=== PATIENT | female | born 1990 | race Two or more races ===

== ENCOUNTER 2017-10-16 11:45 | Inpatient (IN) | payer MEDICAID ==
[2017-10-16] MEDS ORDERED: Misoprostol TAB* 100 MCG PO ONE (14:15)
--- NOTE | 2017-10-16 19:00 | HP ---
General Information - Reason for Visit spontaneous rupture of membranes - General Information Maternal Age: 27 Grav: 1 Para: 0 SAB: 0 IEA: 0 Estimated Due Date: 10/16/17 Determined By: LMP Maternal Blood Type and Rh: A Positive - Results this Serology/RPR Result: Non-Reactive Rubella Result: Immune HBsAg Result: Negative HIV Result: Negative GBS Culture Result: Negative Past Medical History Delivery History: See Records Pertinent Past Medical History: See Records - uterine fibroids Past Medical History Comment: ooprectomy and cystectomy Pertinent Past Surgical History: See Records - oophrectomy and cystectomy, appendectomy Pertinent Family History: See Records - Br. CA, CVD, HTN - Antepartal Records Antepartal Records: Reviewed, Complicated by: - uterine fibroids Review of Systems Constitutional: Comfortable CV Complaint: No Respiratory: Shortness of Breath: No Gastrointestinal: No Nausea/Vomiting, Normal Bowel Movement Genitourinary: Leaking Fluid, No Dysuria, No Bleeding Musculoskeletal: No Complaint, No Epigastric Pain Neurological: No Headache, No Visual Changes Movement: Normal Exam Allergies/Adverse Reactions: Allergies No Known Allergies Allergy (Verified 10/16/17 15:27) T:98.3, P:83, R:18, BP: 117/65, O2:98 - Measurements Height: 5 ft 6 in Weight: 162 lb Weight in lbs: 162.284300 Body Mass Index (BMI): 26.1 Pre- Weight: 139 lb Weight Gained This : 23 lbs and 0 ozs - Exam Breast: Breast Exam Deferred CVA: No CVA Tenderness Extremities: No Edema Heart: Normal Rhythm/Heart Sounds HEENT: No Significant Findings Lungs: Clear Bilaterally Rectal: Rectal Exam Deferred Reflexes: DTR 2+ Thyroid: No Thyromegaly - Abdominal Exam Abdomen Exam: Fundal Height Consistent with Dates - Ultrasound/Biophysical Profile Ultrasound Status: Not Done Targeted Exam Findings Estimated Weight: 8lbs Cervical Exam: 3cm Effacement: 70% Station: -1 Presenting Part: Vertex Membrane Status: Leaking Amniotic Fluid Evaluation: Clear Bleeding/Discharge: None EFM Findings - External Monitor Findings Baseline Heart Rate: 130 External Monitor Findings: Accelerations Present, Variability Moderate, Baseline Stable Contractions: Irregular, Mild, 45-90 Seconds Assessment/Plan - Assessment 27 y.o , EGA 40wks, SROM - Plan Plan: Induction, Cervical Ripening - Date/Time of Admission Date of Admission: 10/16/17 Time of Admission: 13:00
--- NOTE | 2017-10-17 05:53 | PN ---
Progress Note - Progress Note Date of Service: 10/17/17 SOAP: Subjective: [Pt reports contractions increasing in intensity approx 5-6 min apart. Con't LOF, clear. +bloody show, -bleeding. +FM. Pt tired and desires epidural and pitocin augmentation as needed.] Objective: [T:98.2 BP: 124/66, P:75, R:18 cervical exam by nurse Indu Ray /-1] Assessment: [27 y.o. , SROM] Plan: [1) Epidural 2) Position changes 3) Start pitocin 4) Reviewed R/B and pt agrees with plan]
[2017-10-17 05:54] LABS: ABS Basophils 0.1 10^3/ul (0-0.2); ABS Eosinophils 0 10^3/ul (0-0.6); ABS Monocytes 0.5 10^3/ul (0-0.8); ABS Neutrophils 7.7 10^3/ul (1.5-7.7); ABS Nucleated RBC 0 10^3/ul; Eosinophil % 0.2 % (0-6); Hematocrit 40 % (35-47); Hemoglobin 13.9 g/dl (12.0-16.0); Lymphocyte % 10.3 % (25-47); Mean Corpuscular HGB Conc 35 g/dl (31-36); Mean Corpuscular Hemoglobin 33 pg (27-31); Mean Corpuscular Volume 96 fL (80-97); Mean Platelet Volume 8.8 um3 (7.4-10.4); Nucleated Red Blood Cells % 0.1; Platelet Count 166 10^3/ul (150-450); Red Blood Count 4.18 10^6/ul (4.00-5.40); Red Cell Distribution Width 14 % (10.5-15); White Blood Count 9.3 10^3/ul (3.5-10.8)
[2017-10-17] MEDS ORDERED: OBEPIDURAL* 250 ML EPIDURAL ONE (06:00)
[2017-10-17] MEDS ORDERED: Sodium Citrate/Citric Acid* 15 ML UDC PO PRN (07:05)
[2017-10-17] MEDS ORDERED: Famotidine TAB* 20 MG PO PRN (07:05)
[2017-10-17] MEDS ORDERED: Phenylephrine IV* 40 MCG/ML 10 ML SYRINGE IV PUSH PRN ×2 (07:05)
[2017-10-17] MEDS ORDERED: fentaNYL* 50 MCG/ML 2 ML VIAL (100 MCG VIAL) ONE (07:41)
--- NOTE | 2017-10-17 07:41 | PN ---
Progress Note - Progress Note Date of Service: 10/17/17 SOAP: Subjective: [Pt reports back pain is gone but pt con't to complain of lower abdominal pain with contraction. Anesth to reevaluate pt. ] Objective: [T: 99.1, P: 88, BP: 120/70 FHT: Baseline 145bpm, +accels, -decels, mod variability ctx q3-6 min.] Assessment: [27 y.o. 40w1d SROM, protracted labor] Plan: [1) Anesth. consult 2) Start Pitocin low dose 3) Reevaluate PRN]
[2017-10-17] MEDS ORDERED: Oxytocin in LR* 20 UNITS/1,000 ML BAG IVPB SCH ×2 (08:00→16:00)
[2017-10-17] MEDS ORDERED: Oxytocin in LR* 20 UNITS/1,000 ML BAG IVPB ONE (08:11)
--- NOTE | 2017-10-17 12:23 | PN ---
Progress Note - Progress Note Date of Service: 10/17/17 SOAP: Subjective: [Pt resting comfortably with second epidural. ] Objective: [BP: 105/65, T:99.2 FHR: Baseline: 140 bpm, +accels, -decels, mod variability. ] Assessment: [27 y.o. 40w1d EGA, SROM, protracted. Pitocin augmentation] Plan: [1) Con't pitocin 2) Position changes 3) Reevaluate PRN]
[2017-10-17] MEDS ORDERED: Acetaminophen TAB* 325 MG PO PRN (15:31)
[2017-10-17] MEDS ORDERED: Glycerin ADULT SUPP PR PRN (15:31)
--- NOTE | 2017-10-17 15:35 | PROCNOTE ---
[facility] OB: Delivery Note - Delivery A Date of : 10/17/17 Time of : 14:52 Sex: Male Score 1 Minute: 9 Score 5 Minutes: 9 Gestational Age in Weeks and Days at Delivery: 40 Weeks and 1 Days Delivery Method: Spontaneous Vaginal Labor: Spontaneous Did Patient attempt ?: N/A, No Previous Amniotic Fluid: Clear Estimated Blood Loss: 350 Anesthesia/Analgesia: CEI for Labor Delivered By: Saida Mendenhall - Nursery Level of Nursery: Regular/Bedside - Perineum Perineal Injury: Bruising, Perineal Laceration, 2nd Degree Perineal Repair: By Delivering Practioner - Events Delivery Events of Note: Pitocin During Labor, Supplemental O2 to Mother, Maternal Temperature during Labor
[2017-10-17] MEDS ORDERED: Simethicone TAB* 80 MG TAB.CHEW PO SCH (17:30)
[2017-10-17] MEDS: Ibuprofen TAB* 600 MG PO PRN (19:37)
[2017-10-17] MEDS: OBEPIDURAL* 250 ML EPIDURAL SCH (20:23)
[2017-10-17] MEDS: Docusate CAP* 100 MG PO SCH (21:20)
[2017-10-18] MEDS: Ibuprofen TAB* 600 MG PO PRN ×2 (07:51→21:21)
[2017-10-18] MEDS: Dibucaine 1% 28.35 GM TUBE PR PRN (07:53)
[2017-10-18] MEDS: Witch Hazel PAD* JAR TOPICAL PRN (07:53)
[2017-10-18 08:26] LABS: ABS Basophils 0 10^3/ul (0-0.2); ABS Eosinophils 0 10^3/ul (0-0.6); ABS Lymphocytes 0.8 10^3/ul (1.0-4.8); ABS Monocytes 0.5 10^3/ul (0-0.8); ABS Neutrophils 8.8 10^3/ul (1.5-7.7); ABS Nucleated RBC 0 10^3/ul; Eosinophil % 0.2 % (0-6); Hematocrit 35 % (35-47); Hemoglobin 12.2 g/dl (12.0-16.0); Lymphocyte % 7.7 % (25-47); Mean Corpuscular HGB Conc 35 g/dl (31-36); Mean Corpuscular Hemoglobin 33 pg (27-31); Mean Corpuscular Volume 96 fL (80-97); Mean Platelet Volume 8.4 um3 (7.4-10.4); Nucleated Red Blood Cells % 0; Platelet Count 155 10^3/ul (150-450); Red Blood Count 3.66 10^6/ul (4.00-5.40); Red Cell Distribution Width 14 % (10.5-15)
[2017-10-18] MEDS: Docusate CAP* 100 MG PO SCH ×3 (09:00→21:21)
[2017-10-18] MEDS ORDERED: Ferrous Gluconate TAB* 324 MG TAB PO SCH (09:00)
[2017-10-18] MEDS: OBEPIDURAL* 250 ML EPIDURAL SCH (14:08)
--- NOTE | 2017-10-18 16:28 | PTEDU ---
Patient Name: JASMIN LANGE NAZARIOJASMIN selected video: Never Ever Shake a Baby to view on 10/18/2017 at 4:27:39 PM from [id number]
--- NOTE | 2017-10-18 16:37 | PTEDU ---
Patient Name: JASMIN LANGE JASMIN LANGE selected video: BBOB: Nurturing Your Gorgeous &Growing Baby by to view on 2017 at 4:36:[address] [id number]
--- NOTE | 2017-10-18 17:07 | PTEDU ---
Patient Name: JASMIN LANGE NAZARIOJASMIN selected video: Follow Me Mum: The Dai to Successful to view on 10/18/2017 at 5: 06:59 [email or web address]
[2017-10-19 09:17] VITALS: BP 104/50
[2017-10-19] MEDS: Docusate CAP* 100 MG PO SCH ×3 (09:25→16:26)
[2017-10-19] MEDS: Dibucaine 1% 28.35 GM TUBE PR PRN (18:55)
[2017-10-19] MEDS: Witch Hazel PAD* JAR TOPICAL PRN (18:55)
== END 2017-10-19 19:18 | disposition home or self-care (01) | DRG 560 ==
LOC: MCHOB 13:10
PROVIDERS: ADMIT Midwife; ATTEND Midwife
PROC: 10E0XZZ Delivery of Products of Conception, External Approach (ICD-10-PCS; principal; 2017-10-17)
PROC: 4A1HXCZ Monitoring of Products of Conception, Cardiac Rate, External Approach (ICD-10-PCS; 2017-10-17)
PROC: 0KQM0ZZ Repair Perineum Muscle, Open Approach (ICD-10-PCS; 2017-10-17)
DX: O48.0 Post-term pregnancy (principal); O75.2 Pyrexia during labor, not elsewhere classified; O63.9 Long labor, unspecified; Z3A.40 40 weeks gestation of pregnancy; Z37.0 Single live birth; O69.81X0 Labor and delivery complicated by cord around neck, without compression, not applicable or unspecified; O70.1 Second degree perineal laceration during delivery; O34.13 Maternal care for benign tumor of corpus uteri, third trimester; D25.9 Leiomyoma of uterus, unspecified
CPT/HCPCS: 36415; 85025; 86850; 86900; 86901; A9270-GY; J3010; S0191